=== PATIENT | male | born 1985 | race Caucasian/White ===

== ENCOUNTER 2016-08-23 04:14 | Emergency (ER) | payer OTHER | END 2016-08-23 06:00 | disposition home or self-care (01) | LOC: ER 04:14 | DX: R07.89 Other chest pain (principal); F41.9 Anxiety disorder, unspecified; Z79.899 Other long term (current) drug therapy; Z88.1 Allergy status to other antibiotic agents | CPT/HCPCS: 36415; 96374 ==